=== PATIENT | male | born 1950 ===

== ENCOUNTER 2017-08-10 14:31 | Emergency (ER) | payer OTHER ==
[2017-08-10 14:31] VITALS: BMI 28.1
[2017-08-10 14:50] VITALS: RESP 16
[2017-08-10] MEDS ORDERED: MethylPREDNISolone 40 mg Vial IVP STA (15:31)
[2017-08-10] MEDS ORDERED: Albuterol-Ipratrop 3 mg / 0.5 (3 ml) UD INH STA ×2 (15:31→15:32)
--- NOTE | 2017-08-10 16:16 | C.PDOC ---
History Of Present Illness 67 year old male with a history of hypertension and a questionable history of COPD presents to the emergency department with complaints of cough and shortness of breath persisting for the last few days. Patient reports feeling feverish but denies vomiting. Time Seen by Provider: 08/10/17 15:18 Chief Complaint (Nursing): Flu-like Symptoms History Per: Patient History/Exam Limitations: no limitations Onset/Duration Of Symptoms: Days Associated Symptoms: Fever (subjective), Sputum, Other (shortness of breath) Past Medical History Reviewed: Historical Data, Nursing Documentation, Vital Signs Vital Signs: Last Vital Signs Temp 98.3 F 08/10/17 14:40 Pulse 90 08/10/17 14:40 Resp 16 08/10/17 14:40 BP 131/76 08/10/17 14:40 Pulse Ox 99 08/10/17 17:51 - Medical History PMH: COPD (questionable), Gastrointestinal Ulcer, HTN, Hypercholesterolemia Denies: Chronic Kidney Disease Surgical History: No Surg Hx Family History: States: No Known Family Hx - Social History Hx Tobacco Use: Yes Hx Alcohol Use: No Hx Substance Use: No - Immunization History Hx Tetanus Toxoid Vaccination: No Hx Influenza Vaccination: No Hx Pneumococcal Vaccination: No Review Of Systems Except As Marked, All Systems Reviewed And Found Negative. Constitutional: Positive for: Fever Respiratory: Positive for: Cough, Shortness of Breath Gastrointestinal: Negative for: Vomiting Physical Exam - Physical Exam Appears: Non-toxic, No Acute Distress Skin: Warm, Dry Head: Atraumatic, Normacephalic Eye(s): bilateral: Normal Inspection Oral Mucosa: Moist Neck: Supple Chest: Symmetrical Cardiovascular: Rhythm Regular Respiratory: Wheezing (at bilateral bases) Extremity: Pedal Edema (bilaterally +1) ED Course And Treatment - Laboratory Results Result Diagrams: 08/10/17 16:39 08/10/17 16:39 O2 Sat by Pulse Oximetry: 99 (RA) Pulse Ox Interpretation: Normal - Radiology CXR: Viewed By Me, Read By Radiologist CXR Interpretation: Yes: No Acute Disease. No: Infiltrates - Other Rad CXR X-Ray: Viewed By Me, Read By Radiologist Interpretation: HISTORY: Chest pain. COMPARISON: 01/23/2017. TECHNIQUE: Chest PA and lateral. FINDINGS: LUNGS: No active pulmonary disease. PLEURA: No significant pleural effusion identified. No pneumothorax apparent. CARDIOVASCULAR: No radiographic findings to suggest acute or significant cardiovascular disease. OSSEOUS STRUCTURES: No significant abnormalities. VISUALIZED UPPER ABDOMEN: Normal. OTHER FINDINGS: Surgical clips in the expected location of the gastroesophageal junction. IMPRESSION: No active disease. No significant interval change compared to the prior examination(s). Medical Decision Making Medical Decision Making: Plan: EKG BNP CMP Troponin PTT Prothrombin TIme CXR Two Views Duoneb 3ml INH Solu-Medrol 125mg IVP Influenza A B suspect mild copd. minimal wheezing at bases. pt given nebs steridos. labs cxr neg. notified of anemia. denies rectla bleeding melena. agrees to outpt fu. pt sleeping in nad. eating po. Disposition - Disposition Disposition: HOME/ ROUTINE Disposition Time: 06:00 Condition: STABLE Additional Instructions: please follow up with your doctor and discuss your lab tests with your doctor. you may need further diagnostic testing and workup Prescriptions: Albuterol 0.083% [Albuterol 0.083% Inhal Linnette (2.5 mg/3 ml) UD] 2.5 mg IH Q6 PRN #20 PRN Reason: Wheezing Mask, Face [Nebulizer Aerosol Mask Adult] 1 dev XX PRN PRN #1 dev PRN Reason: Wheezing Nebulizer [Aeroeclipse II] 1 each MC Q6 PRN #1 each PRN Reason: Wheezing Prednisone 50 mg PO DAILY #5 tablet Instructions: Anemia of Chronic Disease, Exacerbation of COPD Forms: [facility] (Kyrgyz) - Clinical Impression Clinical Impression: Anemia, COPD (chronic obstructive pulmonary disease) - Scribe Statement The provider has reviewed the documentation as recorded by the Scribe (Jeremías Muñoz) Provider Attestation: All medical record entries made by the Scribe were at my direction and personally dictated by me. I have reviewed the chart and agree that the record accurately reflects my personal performance of the history, physical exam, medical decision making, and the department course for this patient. I have also personally directed, reviewed, and agree with the discharge instructions and disposition.
[2017-08-10] MEDS ORDERED: Albuterol-Ipratrop 3 mg / 0.5 (3 ml) UD ONE (16:56)
[2017-08-10 16:58] LABS: HEMOGLOBIN 11.6 g/dL (12.0-18.0); MEAN CELL VOLUME 68.1 fL (80.0-94.0); RBC 5.06 Mil/uL (4.40-5.90); WHITE BLOOD COUNT 7.6 K/uL (4.8-10.8)
[2017-08-10 16:59] LABS: BASO % 0.6 % (0.0-2.0); EOS # 0.3 K/uL (0.0-0.7); EOS % 3.9 % (0.0-4.0); LYMPH # 2.4 K/uL (1.0-4.3); LYMPH % 31.6 % (20.0-40.0); MEAN CORPUSCULAR HGB CONC 33.8 g/dL (33.0-37.0); MEAN PLATELET VOLUME 9.5 fL (7.2-11.7); MONO # 0.8 K/uL (0.0-0.8); NEUT # 4.1 K/uL (1.8-7.0); NEUT % 53.9 % (50.0-75.0); NRBC % 0.1 % (0.0-2.0); RED CELL DISTRIBUTION WIDTH 15.7 % (11.5-14.5)
[2017-08-10 17:01] LABS: INR 1.1; PROTHROMBIN TIME 12.1 SECONDS (9.7-12.2)
[2017-08-10 17:16] LABS: ALB/GLOB RATIO 1.4 (1.0-2.1); ALBUMIN 3.9 g/dL (3.5-5.0); ALT/SGPT 39 U/L (21-72); AST/SGOT 35 U/L (17-59); BLOOD UREA NITROGEN 20 mg/dL (9-20); CALCIUM 8.9 mg/dl (8.6-10.4); GFR AFRICAN-AMERICAN > 60; GFR NON-AFRICAN AMERICAN > 60
[2017-08-10 17:25] LABS: B-TYPE NATRIURETIC PEPTIDE 56.9 pg/mL (0-900)
--- NOTE | 2017-08-10 17:44 | RAD ---
HISTORY: Chest pain. COMPARISON: 01/23/2017 TECHNIQUE: Chest PA and lateral FINDINGS: LUNGS: No active pulmonary disease. PLEURA: No significant pleural effusion identified. No pneumothorax apparent. CARDIOVASCULAR: No radiographic findings to suggest acute or significant cardiovascular disease. OSSEOUS STRUCTURES: No significant abnormalities. VISUALIZED UPPER ABDOMEN: Normal. OTHER FINDINGS: Surgical clips in the expected location of the gastroesophageal junction. IMPRESSION: No active disease. No significant interval change compared to the prior examination(s).
[2017-08-10 19:03] VITALS: BP 137/73; PULSE 98; TEMP 99.1; O2SAT 95
--- NOTE | 2017-08-14 15:48 | CARD ---
APPROVED REPORT EKG Measurement Heart [id number] <Conclusion> Normal sinus rhythm Normal ECG
== END 2017-08-10 19:30 | disposition home or self-care (01) ==
LOC: C.ER 14:31
DX: J44.9 Chronic obstructive pulmonary disease, unspecified (principal); D64.9 Anemia, unspecified; I10 Essential (primary) hypertension; Z72.0 Tobacco use
CPT/HCPCS: 71046; 80053; 83880; 84484; 85025; 85610; 85730; 87804; 96374; 96375; 99284; J1885; J2920

== ENCOUNTER 2018-07-10 11:02 | Emergency (ER) | payer OTHER ==
[2018-07-10 11:02] VITALS: BMI 28.1
[2018-07-10 11:16] VITALS: BP 144/81; PULSE 71; RESP 18; TEMP 98.6; O2SAT 97
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
== END 2018-07-10 12:28 | disposition home or self-care (01) ==
LOC: C.ER 11:02
DX: M54.9 Dorsalgia, unspecified (principal); I10 Essential (primary) hypertension; E78.00 Pure hypercholesterolemia, unspecified